=== PATIENT | male | born 1990 | race Caucasian/White ===

== ENCOUNTER 2017-10-15 16:12 | Emergency (ER) | payer OTHER ==
--- NOTE | 2017-10-15 17:20 | EDPHY ---
H & P Smoking Status: Current some day smoker Time Seen by Provider: 10/15/17 16:56 HPI/ROS: CHIEF COMPLAINT: Head injury, eyebrow laceration HISTORY OF PRESENT ILLNESS: 27-year-old male presents to the emergency department by private vehicle with left eyebrow laceration. The patient states last night around midnight he had been drinking and slipped in the bathroom and fell and hit his head. The incident happened around midnight early this morning. He thinks that he had a brief loss of consciousness. He apparently had an episode of epistaxis which is now resolved. He states that he woke up feeling fine this morning. He denies a headache. Denies neck or back pain. Denies chest pain or difficulty breathing. He states that he wanted the laceration to his left eyebrow evaluated. No chest pain or difficulty breathing. No presyncopal symptoms prior to his fall. He has had a history of a concussion 1 year ago. He admits to drinking alcohol last night, no other drugs. Last tetanus shot was 2 years ago. Patient also has a history of insulin-dependent diabetes, however he does not think that that is the reason he fell. He states that he has good control of his blood sugars. His glucose this morning was 187. REVIEW OF SYSTEMS: Constitutional: No fever, no chills. Eyes: No double or blurry vision. ENT: No sore throat. Respiratory: No cough, no shortness of breath. Cardiac: No chest pain. Gastrointestinal: No abdominal pain, vomiting or diarrhea. Genitourinary: No dysuria. Musculoskeletal: No neck or back pain. Skin: Left eyebrow laceration. No rashes. Neurological: No headache. (Barbra Luoa Joceline) Past Medical/Surgical History: Insulin-dependent diabetic (Dennise Luorina Joceline) Social History: [employer] student (Kortney Luo) Physical Exam: General Appearance: Alert, no distress. No facial bone tenderness. Eyes: Pupils equal and round. Extraocular motions are all intact. ENT: Mouth: Mucous membranes moist. Respiratory: No wheezing, rhonchi, or rales, lungs are clear to auscultation. Cardiovascular: Regular rate and rhythm. Gastrointestinal: Abdomen is soft and nontender, no masses, no rebound or guarding, bowel sounds normal. Neurological: Alert and oriented x 3, cranial nerves II through XII grossly intact Skin: 2 cm left eyebrow laceration. No palpable bony tenderness. Warm and dry , no rashes. Musculoskeletal: Nontender to palpate along the cervical, thoracic or lumbar spine. Neck is supple. Extremities: Full range of motion and no peripheral edema. Psychiatric: Patient is oriented X 3, there is no agitation. (RuthiemaryKortney M) Constitutional: Initial Vital Signs Temperature (C) 36.4 C 10/15/17 16:25 Heart Rate 76 10/15/17 16:25 Respiratory Rate 16 10/15/17 16:25 Blood Pressure 130/68 H 10/15/17 16:25 O2 Sat (%) 94 10/15/17 16:25 O2 Delivery Mode Room Air Allergies/Adverse Reactions: No Known Allergies Allergy (Unverified 10/15/17 16:25) Home Medications: Medication Instructions Recorded Humalog 10/15/17 Medical Decision Making Procedures: Laceration repair. Verbal consent was obtained from the patient. The 2 cm laceration on the left eyebrow was anesthetized using 1% lidocaine with epinephrine. The wound was irrigated with saline, draped and explored to its base with a gloved finger. There were no deep structures involved. The wound was repaired with 6 0 Prolene , 5 sutures. The wound repair was simple. The procedure was performed by myself. (Kortney Luo) ED Course/Re-evaluation: 27-year-old male presents to the emergency department after he fell hitting his head and sustained a left eyebrow laceration. The incident happened around midnight last night. He presents now 15 hr later for evaluation of his left eyebrow laceration. I did discuss the pros and cons of repairing the wound and he agrees with sutures for his left eyebrow laceration. He was given wound care precautions. The patient has no headache. He has a normal neurologic examination. I discussed the pros and cons of CT imaging of his brain including radiation exposure and the patient declined CT imaging of his brain. I think this is reasonable. The patient has a capacity to make this decision. The patient also has a history of insulin-dependent diabetes. He states that he has good control of his blood sugars. He states his blood sugar when he woke up this morning was 187. He does not think that that is the reason that he fell last night. I offered laboratory testing of the patient declined. The patient states"I feel fine". The wound was repaired, see procedure note. (Kortney Luo) I did not see this patient while he was in the emergency department. However his care was discussed with the PA while the patient was in the department. I agree with treatment plan and management (Henry Reaves) Differential Diagnosis: Head injury including but not limited to concussion, skull fracture, intraparenchymal contusion, subarachnoid, subdural and epidural hematoma. (Kortney Luo) Departure - Departure Disposition: Home, Routine, Self-Care Clinical Impression: Laceration of left eyebrow, Head injury Condition: Good Instructions: Care For Your Stitches (ED), Laceration (ED), Head Injury (ED) Additional Instructions: Wound Care Follow-Up: Removal of sutures in 5 days. Suture removal is complimentary in uncomplicated cases. Infection or abnormal findings would require reevaluation by the MD. In that case, you may be billed. Return to the emergency department if you develop headache, vomiting, altered mental status, or if you feel worse in any way. Referrals: ERAN MAYES [Other] - As per Instructions
[2017-10-15 18:03] VITALS: BP 123/75
== END 2017-10-15 18:03 | disposition home or self-care (01) ==
PROC: 0HQ1XZZ Repair Face Skin, External Approach (ICD-10-PCS; principal; 2017-10-15)
DX: S01.112A Laceration without foreign body of left eyelid and periocular area, initial encounter (principal); E11.9 Type 2 diabetes mellitus without complications; F17.200 Nicotine dependence, unspecified, uncomplicated; Z79.4 Long term (current) use of insulin; W01.198A Fall on same level from slipping, tripping and stumbling with subsequent striking against other object, initial encounter; Y92.002 Bathroom of unspecified non-institutional (private) residence as the place of occurrence of the external cause